=== PATIENT | male | born 1985 | race Caucasian/White ===

== ENCOUNTER 2019-10-17 13:37 | Inpatient (IN) | payer OTHER, MEDICAID ==
[~2019-10-17] VITALS: Ht 182.9 cm; Wt 99.8 kg
[2019-10-17 14:18] VITALS: BP 140/92
[2019-10-17] MEDS ORDERED: OMEPRAZOLE40 MG PO (15:02)
[2019-10-17] MEDS ORDERED: OSTERA TABLET1 EAC1 PO (15:02)
[2019-10-17] MEDS ORDERED: CELEXA 20 MG TA20 MG PO (15:02)
[2019-10-17] MEDS ORDERED: OXYBUTYNIN 5 MG5 M2 PO (15:02)
[2019-10-17] MEDS ORDERED: CRANBERRY200 MG PO (15:03)
[2019-10-17] MEDS ORDERED: SENNA8.8 MG/5 M PO (15:03)
[2019-10-17] MEDS ORDERED: GOLYTELY4000 M1 PO (15:03)
[2019-10-17] MEDS ORDERED: COLACE100 MG PO (15:03)
[2019-10-17 15:04] LABS: HEMATOCRIT 47.2 % (42.0-52.0); HEMOGLOBIN 15.2 gm/dL (14.0-18.0); MCH 19.1 pg (26.0-34.0); MCHC 32.3 g/dL (28.0-37.0); NUCLEATED RBCS 0 /100WBC; PLATELET COUNT* 318 thou/uL (150-400); RDW-CV 16.3 % (10.5-14.5); WBC 15.3 thou/uL (4.0-11.0)
[2019-10-17 15:13] LABS: CALCIUM 9.7 mg/dL (8.5-10.1); CREATININE 0.7 mg/dL (0.6-1.3); POTASSIUM 4.1 mmol/L (3.5-5.1)
[2019-10-17 15:17] LABS: ALBUMIN 4.2 g/dL (3.4-5.0); TOTAL BILIRUBIN 1.4 mg/dL (<0.1-1.0); TOTAL PROTEIN 8.1 g/dL (6.4-8.2)
[2019-10-17 15:36] LABS: ABSOLUTE LYMPHOCYTES 1.7 thou/uL (0.8-5.3); ABSOLUTE MONOCYTES 0.6 thou/uL (0.0-1.2); ANISOCYTOSIS 1+; HYPOCHROMASIA 2+; MICROCYTES 3+; PLATELET ESTIMATE ADEQUATE
[2019-10-17 15:47] LABS: URINE BLOOD NEGATIVE (Negative); URINE CLARITY CLEAR; URINE COLOR YELLOW; URINE GLUCOSE-RANDOM NEGATIVE (Negative); URINE KETONES 1+ (Negative); URINE LEUKOCYTES-REFLEX 1+ (Negative); URINE NITRITE-REFLEX NEGATIVE (Negative); URINE PROTEIN NEGATIVE (Negative); URINE SPECIFIC GRAVITY 1.025 (1.005-1.030)
[2019-10-17 15:50] LABS: URINE BILIRUBIN 1+ (Negative)
[2019-10-17 15:51] LABS: ICTOTEST (BILI CONFIRMATORY) Positive (Negative)
[2019-10-17 15:55] LABS: AMP/METHAMP Negative (Negative); BARBITURATES Negative (Negative); BENZODIAZEPINES Negative (Negative); COCAINE Negative (Negative); METHADONE Negative (Negative); OPIATES Negative (Negative); PCP Negative (Negative); THC Negative (Negative)
[2019-10-17 16:20] LABS: BACTERIA-REFLEX >30 Many /HPF (None Seen); CALCIUM OXALATE 4-10 Moderate /LPF (None Seen); CASTS None Seen /LPF (None Seen); SQUAMOUS 0-3 Few /LPF (0-3); URINE RBC 3-10 Few /HPF (0-2); URINE WBC-REFLEX 6-15 Few /HPF (0-5)
[2019-10-17 20:00] VITALS: BP 135/92
[2019-10-17 22:15] VITALS: BP 146/88
--- NOTE | 2019-10-18 08:19 | EKG ---
[place] [address] ELECTROCARDIOGRAM REPORT Name: JOANNA OTERO Room: [place] [address] DIS IN [facility]#: [id number] Admission: 10/17/19 Attend Phys: Amari Mcgrath Discharge: 10/17/19 Date of : 85 Date of Service: 10/17/19 1441 Report #: [id number] THIS REPORT FOR: //name// [facility] ED Test Date: 2019-10-17 Test Time: 14:41:43 Pat Name: JOANNA OTERO Department: Room: [facility] Gender: M Health Screener: DELIMS : 1985 Requested By: Yoly Davies Order Number: [id number] MD: Chadd Zayas Measurements Intervals [place] Rate: 134 P: 27 TX: 152 QRS: 111 QRSD: 92 T: -5 QT: 286 QTc: 427 Interpretive Statements Sinus tachycardia Right axis deviation Low voltage, precordial leads Borderline T abnormalities, inferior leads Baseline wander in lead(s) II,aVR,aVF No previous ECG available for comparison Electronically Signed On 10-18-2019 8:19:04 CDT by Chadd Zayas [email or web address] <ELECTRONICALLY SIGNED> By: Chadd Zayas MD, FAC 10/18/19 0819 1441 1441 Chadd Zayas MD, FAC /EPI
== END 2019-10-17 22:20 | disposition left against medical advice (07) | DRG 872 ==
LOC: M.ERS 13:37 → M.TBA-ER 17:02
PROVIDERS: Nurse Practitioner Family; ADMIT Family Medicine; ATTEND Family Medicine
DX: A41.9 Sepsis, unspecified organism (principal); F84.0 Autistic disorder; N30.01 Acute cystitis with hematuria; K59.00 Constipation, unspecified; Z20.828 Contact with and (suspected) exposure to other viral communicable diseases; Q05.9 Spina bifida, unspecified; Z79.899 Other long term (current) drug therapy; Z91.040 Latex allergy status